=== PATIENT | female | born 2000 | race Caucasian/White ===

== ENCOUNTER 2024-10-11 18:06 | Inpatient (IN) ==
[2024-10-11] MEDS: LACTATED RINGER'S 1,000 ML IV PRN (18:25)
[2024-10-11] MEDS: LIDOCAINE 1% LOCAL 20 ML VIAL INFIL PRN (18:48)
[2024-10-11] MEDS: OXYTOCIN 30 UNITS/NSS 30 UNITS/500 ML BAG IV PRN (18:49)
[2024-10-11 18:51] LABS: Hematocrit (blood only) 35.5 % (37.0-47.0); Hemoglobin 12.2 g/dl (12.0-16.0); Mean Corpuscular Hemoglobin 29.8 pg (25.0-34.0); Mean Corpuscular Hgb Conc 34.4 g/dL (32.0-36.0); Mean Corpuscular Volume 86.8 fL (80.0-100.0); Platelet Count 269 K/uL (130-400); RDW Coefficient of Variation 12.7 % (11.5-14.5); RDW Standard Deviation 39.6 fL (36.4-46.3); Red Blood Count 4.09 M/uL (4.20-5.40); White Blood Count 16.41 K/ul (4.8-10.8)
--- NOTE | 2024-10-11 19:04 | Delivery Summary ---
Vaginal Delivery Summary Date of Service October 11, 2024 Vaginal Delivery Summary and 1st Degree LAC Patient progressed to 10 cm dilated 100% effaced +2 station pressure intact perineum without anesthesia and delivered a viable female with weight and Apgars pending. Had the delivered without difficulty quickly followed by shoulders and body. There is noted to be a posterior left compound arm which was delivered followed by anterior shoulder. was noted to be vigorous upon delivery and a 1 minute delayed cord clamping was initiated. Cord was then double clamped and cut remained on maternal abdomen. Cord blood obtained and attention turned deliver placenta which delivered intact with three-vessel cord gentle cord traction. Inspection of perineum, vagina and cervix there was noted to be a first-degree perineal laceration which repaired with 3-0 Vicryl in continuous running stitch. Needle sponge and instrument counts were correct at completion of the case both mother and stable in the immediate post delivery timeframe. Apgars pending and 59 mL per QBL. No complications noted. [facility] Vaginal Delivery Charge Delivery Type Details: and 1st Degree LAC
[2024-10-11] MEDS ORDERED: ACETAMINOPHEN 325 MG TAB PO PRN (19:19)
[2024-10-11] MEDS ORDERED: IBUPROFEN 600 MG TAB PO PRN (19:19)
[2024-10-11] MEDS ORDERED: OXYTOCIN 30 UNITS/NSS 30 UNITS/500 ML BAG IV PRN (19:19)
[2024-10-11] MEDS ORDERED: bisacodyL 10 MG SUPP PR PRN (19:19)
[2024-10-11] MEDS ORDERED: HYDROCORTISONE ACETATE 25 MG SUPP PR PRN (19:19)
[2024-10-11] MEDS: BENZOCAINE 20% SPRY 85 APPLN/85 GM CAN EXT PRN (21:03)
[2024-10-11] MEDS: DOCUSATE SODIUM 100 MG CAP PO SCH (21:03)
[2024-10-11] MEDS: DIPHTHER/TETAN/PERTUS Vaccine (Tdap, Adol/Adult) 0.5mL IM ONE (21:16)
[2024-10-11] MEDS: OXYTOCIN 30 UNITS/500ML NSS IV ONE (21:16)
[2024-10-12] MEDS: PRENATAL VITAMIN 1 TAB PO SCH (08:56)
--- NOTE | 2024-10-12 09:18 | Obstetrical Progress Note ---
Date of Service October 12, 2024 Assessment & Plan (1) Encounter for care and examination after delivery: Day 1 status post precipitous vaginal delivery. Patient doing well. Routine care. Subjective Ambulation: ambulating normally Voiding: no voiding problems Passing Gas:: Yes Diet Tolerance:: regular diet Lochia:: Moderate Denying calf pain/tenderness Physical Exam Constitutional WD/WN, vitals as above Respiratory normal respiratory effort; no respiratory distress and no labored breathing Cardiovascular Extremities: no calf tenderness Gastrointestinal (Abdomen) Inspection/Auscultation: abdomen normal to inspection; abdomen not distended Percussion/Palpation: abdomen soft; abdomen nontender, no guarding and abdomen not rigid Genitourinary OB Exam Abdomen: + fundal height Fundus: + firm and + relation to umbilicus (Below); not tender or not boggy Results & Data Vital Signs (Past 12 Hours) Vital Signs Temp Pulse Pulse Resp BP BP O2 Del Method 10/12/24 04:00 37.0 C 73 16 128/82 Room Air 10/11/24 23:50 37.1 C 82 18 128/74 Room Air 10/11/24 23:50 Room Air 10/11/24 21:05 Room Air 10/11/24 20:55 18 10/11/24 20:42 80 10/11/24 20:42 129/61
[2024-10-12] MEDS: MEASLES, MUMPS & RUBELLA VIRUS VACCINE (MMR) 0.5ML VIAL SQ ONE (14:15)
[2024-10-12] MEDS: bisacodyL 5 MG TABEC PO SCH (20:41)
--- NOTE | 2024-10-13 07:22 | Obstetrical Progress Note ---
Date of Service <Enma Simms MD - Last Filed: 10/13/24 07:42> October 13, 2024 Assessment & Plan <Enma Simms MD - Last Filed: 10/13/24 07:42> (1) Encounter for care and examination after delivery: PPD#2 s/p at 37 wga. Stable. Rh+, GBS neg, rubella non immune, VSS Continue routine care, ambulation, diet as tolerated Plan for DC today <Silvestre Chau MD - Last Filed: 10/13/24 07:49> (1) Encounter for care and examination after delivery: Subjective <Enma Simms MD - Last Filed: 10/13/24 07:42> Narcisa is a 24yo who is PPD#2 following at 35 wga Mild abd pain/cramping, well managed on analgesics Tolerating meals, voiding, ambulating normally +passing gas, +BM Lochia appropriate, diminishing] Planning to breastfeed. Constitutional: no fever, no chills or no sweats Respiratory: no dyspnea Cardiovascular: no chest pain, no palpitations or no calf pain Breast: no breast pain Gastrointestinal: no nausea or no vomiting Genitourinary (female): no dysuria Neurologic: no headache(s) no changes in vision, no headaches Physical Exam <Enma Simms MD - Last Filed: 10/13/24 07:42> General: Alert, oriented. No acute distress. Cardiac: Regular rate and rhythm, no murmurs, rubs, or gallops. Respiratory: Clear to auscultation bilaterally. No increased work of breathing. Symmetrical chest rise. No respiratory distress. Abdomen: Soft, nontender, nondistended. Bowel sounds present. Uterus: Uterine fundus firm, nontender, palpable 1 cm below the umbilicus. Lower extremities: No lower extremity edema or swelling. No deep calf pain. Results & Data <Enma Simms MD - Last Filed: 10/13/24 07:42> Vital Signs (Past 12 Hours) Vital Signs Temp Pulse Resp BP Pulse Ox O2 Del Method 10/12/24 22:56 36.9 C 73 16 122/74 97 Room Air Supervising Physician <Silvestre Chau MD - Last Filed: 10/13/24 07:49> Co-Signing Physician Notes Patient seen with resident and agree with the above findings and plan. Requesting discharge and stable for discharge per preference. Resident Activity Tracking <Enma Simms MD - Last Filed: 10/13/24 07:42> Resident Involvement: Resident Care Provided Care Provided: Adult Hospital Medicine
[2024-10-13 09:04] VITALS: BP 128/82; PULSE 90; RESP 20; TEMP 97.9; O2SAT 98
== END 2024-10-13 10:08 | disposition home or self-care (01) | DRG 807 ==
LOC: OPB 18:06 → 4S1 18:07 → 4E2 21:21